=== PATIENT | female | born 1935 | race Caucasian/White ===

== ENCOUNTER 2017-04-20 11:16 | Emergency (ER) | payer SELFPAY ==
[~2017-04-20] VITALS: Ht 157.5 cm; Wt 60.0 kg
[2017-04-20 11:25] VITALS: BP 168/92; PULSE 93; RESP 18; TEMP 98; O2SAT 98
--- NOTE | 2017-04-20 12:15 | RADRPT ---
EXAM DATE/TIME: 04/20/2017 11:44 [facility] COMPARISON: No previous studies available for comparison. INDICATIONS : Left hand pain and swelling post wrist fracture. MEDICAL HISTORY : Left wrist fracture 6 days ago. SURGICAL HISTORY : None. ENCOUNTER: Initial ACUITY: 1 week PAIN SCORE: 6/10 LOCATION: Left hand FINDINGS: 3 views of the left hand demonstrate a displaced ulnar styloid fracture with ulnar positive variance. There is a displaced mildly comminuted transverse fracture of the distal radial metaphysis with vola r displacement of the distal fragment. Fracture line medially extends towards the distal radioulnar j oint. The fracture line also extends into the radiocarpal joint. The carpal bones appear intact. Ther e is hand and wrist soft tissue swelling. Degenerative changes are present at the second and third di git DIP joint. CONCLUSION: 1. Transverse mildly comminuted displaced fracture of the distal radial metaphysis with volar displac ement of the distal fragment. 2. Displaced ulnar styloid fracture with ulnar positive variance. Memo Puri MD on April 20, 2017 at 12:12 Board Certified Radiologist. This report was verified electronically.
[2017-04-20] MEDS ORDERED: PROPOFOL 200 MG/20 ML AMP IV ONE (13:15)
[2017-04-20] MEDS ORDERED: NORC5TAB PO (14:15)
--- NOTE | 2017-04-20 14:16 | PD ---
HPI . Extremity injury Chief Complaint: Injury Time Seen by Provider: 13:04 Travel History International Travel<30 days: No Contact w/Intl Traveler<30days: No Traveled to known affect area: No History of Present Illness HPI This patient presents with left hand and wrist pain following a trip and fall 5 days ago. She has been treating it at home with ice, Angel bandage and elevation. Her bruising and swelling has continued and is getting worse prompting her to visit us today. Her pain is rated 8/10. She states that she can move her wrist and fingers without difficulty. PFSH Past Medical History Medical History: Denies Significant Hx Tetanus Vaccination: Unknown Past Surgical History Surgical History: No Previous Surgery Social History Alcohol Use: No Tobacco Use: No Substance Use: No Allergies-Medications (Allergen,Severity, Reaction): Coded Allergies: No Known Allergies (Verified Allergy, Unknown, 04/20/17) Reported Meds & Prescriptions Reported Meds & Active Scripts Active Alderson (Hydrocodone-Acetaminophen) 5 Mg-325 Mg Tab 1 Tab PO Q4H PRN Review of Systems Except as stated in HPI: all other systems reviewed are Neg Physical Exam Narrative GENERAL: Awake and alert and in no acute distress. SKIN: Warm and dry. Marked bruising and swelling of the left wrist and hand. HEAD: Normocephalic/atraumatic. EYES: Pupils are equal. Extraocular movements are intact. ENT: The tip of her uvula is visible. NECK: Normal range of motion. Full flexion and extension of her neck. CARDIOVASCULAR: Regular rate and rhythm. RESPIRATORY: Nonlabored respirations. Bili MUSCULOSKELETAL: Marked bruising and swelling of the left wrist and hand but minimal tenderness. No gross deformity. NEUROLOGICAL: Nonfocal. PSYCHIATRIC: Appropriate mood and affect. Data Data Last Documented VS Vital Signs Date Time Temp Pulse Resp B/P (MAP) Pulse Ox O2 Delivery O2 Flow Rate FiO2 04/20/17 11:25 98.0 93 18 168/92 (117) 98 Orders Orders Hand, Complete (Qop6ouv) (04/20/17 ) Consent (04/20/17 13:09) [employer] Request For Service (04/20/17 13:09) Propofol 200 Mg/20 Ml Inj (Diprivan 200 (04/20/17 13:15) ^ Saline Lock (04/20/17 13:09) Wrist, Limited (Ap&Lat) (04/20/17 13:09) MDM Medical Decision Making Medical Screen Exam Complete: Yes Emergency Medical Condition: Yes Differential Diagnosis Differential diagnosis of extremity trauma includes but is not limited to fracture, sprain or strain, dislocation, contusion Narrative Course Patient presents for the evaluation of an injury to her left hand/wrist which occurred 5 days ago. She continues to have significant bruising and swelling and presented to us today for evaluation. X-ray to my interpretation shows a Colles' fracture with significant angular displacement. I have discussed conscious sedation with the patient. She is begrudgingly in agreement. She states that she does not want a needle. Postreduction film shows no improvement in the fracture. Procedures Procedure Narrative After the risks and benefits were discussed the following procedure was performed: MODERATE SEDATION: The patient was placed on a rn cardiac and pulse oximetry. An ambu bag and suction were immediately available at bedside. The patient was monitored by the nurse and respiratory therapy. Oxygen saturation, end tidal CO2, heart rate and blood pressure were monitored. Procedural sedation was acheived using propofol. The patient was observed until awake and alert. Procedural Sedation time in attendance was 10 minutes. Following sedation, the left wrist fracture was reduced using traction, countertraction and manual manipulation. This was done with the assistance of the [employer]. Splint was applied by the tech under my direct supervision. Good movement and capillary refill distal to the injury following splinting. Patient reports that the splint feels comfortable. Diagnosis Primary Impression: Colles' fracture of left radius Qualified Codes: S52.532A - Colles' fracture of left radius, initial encounter for closed fracture Referrals: Altagracia Cote MD 3 days Patient Instructions: General Instructions, Wrist Fracture in Adults (DC) Med/Other Pt SpecificInfo: Prescription(s) given Scripts Hydrocodone-Acetaminophen ([place]) 5 Mg-325 Mg Tab 1 TAB PO Q4H Y for PAIN, #12 TAB 0 Refills Prov: Coretta Olivas MD 04/20/17 Disposition: 01 DISCHARGE HOME Condition: Stable Coretta Olivas MD Apr 20, 2017 14:16
[2017-04-20 14:53] VITALS: BP 138/78
--- NOTE | 2017-04-20 15:11 | RADRPT ---
EXAM DATE/TIME: 04/20/2017 14:37 [facility] COMPARISON: No previous studies available for comparison. INDICATIONS : Post reduction. MEDICAL HISTORY : Left wrist fracture 6 days ago. SURGICAL HISTORY : ENCOUNTER: Initial ACUITY: 1 day PAIN SCORE: 2/10 LOCATION: Left wrist. FINDINGS: There is a fracture of the distal radius with foreshortening and intra-articular extension. Ulnar sty loid fracture present. Overlying cast placement. No dislocation. CONCLUSION: 1. Fracture distal radius with foreshortening and anterior and lateral displacement. Ulnar styloid fr acture. Brice Wright MD on April 20, 2017 at 15:02 Board Certified Radiologist. This report was verified electronically.
== END 2017-04-20 15:06 | disposition home or self-care (01) ==
LOC: NEPD 11:16
DX: S52.532A Colles' fracture of left radius, initial encounter for closed fracture (principal); W01.0XXA Fall on same level from slipping, tripping and stumbling without subsequent striking against object, initial encounter
CPT/HCPCS: 25605; 73100; 73130